=== PATIENT | male | born 1990 | race Caucasian/White ===

== ENCOUNTER 2018-10-19 23:04 | Emergency (ER) | payer BC ==
[~2018-10-19] VITALS: Wt 71.5 kg
[2018-10-19 23:06] VITALS: Wt 71.5 kg
[2018-10-19 23:07] VITALS: BP 126/65; PULSE 82; RESP 19
--- NOTE | 2018-10-20 01:16 | ERD ---
ER Documentation Chief Complaint Chief Complaint bib self, cc: canker sores HPI This patient is a 28-year-old male brought in by his girlfriend with concerns for mouth sores for the past 1 week. Patient has had history of similar symptoms many times in the past. He has tried Orajel at home with some relief. He denies any fevers or chills. He denies any history of sexually transmitted infections. The girlfriend states they typically kiss but she never has the same symptoms. Symptoms are exacerbated by eating spicy foods. Symptoms moderate in severity. No other symptoms reported at this time. No fevers or chills reported. ROS All systems reviewed and are negative except as per history of present illness. PMhx/Soc Medical and Surgical Hx: pt denies Medical Hx, pt denies Surgical Hx Hx Alcohol Use: Yes (social) Hx Substance Use: No Hx Tobacco Use: No Smoking Status: Never smoker FmHx Family History: No diabetes Physical Exam Vitals Vital Signs Date Temp Pulse Resp B/P (MAP) Pulse Ox O2 O2 Flow FiO2 Time Delivery Rate 10/19/18 98.3 82 19 126/65 100 23:07 (85) 10/19/18 98.4 75 16 128/74 99 23:06 (92) Physical Exam Const: No acute distress Head: Atraumatic Eyes: Normal Conjunctiva ENT: Normal External Ears, Nose and Mouth. Multiple shallow aphthous ulcerations in the mouth. Neck: Full range of motion. No meningismus. Resp: Clear to auscultation bilaterally Cardio: Regular rate and rhythm, no murmurs Skin: No petechiae or rashes Ext: No cyanosis, or edema Neur: Awake and alert Psych: Normal Mood and Affect Procedures/MDM Patient is a 28-year-old male presenting to the emergency department with signs and symptoms consistent with multiple aphthous ulcers in the mouth. No evidence to suggest peritonsillar abscess, retropharyngeal abscess, herpes gingivostomatitis, sepsis, or other emergencies. Patient was stable and appropriate for discharge and further treatment as an outpatient. He will be provided prescription for Magic mouthwash. The patient was advised to follow-up with his primary care physician and return immediately for any new or worsening or concerning symptoms. Patient agreed with diagnosis, plan, need for follow- up, return precautions. Departure Diagnosis: Primary Impression: Mouth sores Condition: Fair Patient Instructions: Aphthous Ulcer Referrals: [facility] YOU HAVE RECEIVED A MEDICAL SCREENING EXAM AND THE RESULTS INDICATE THAT YOU DO NOT HAVE A CONDITION THAT REQUIRES URGENT TREATMENT IN THE EMERGENCY DEPARTMENT. FURTHER EVALUATION AND TREATMENT OF YOUR CONDITION CAN WAIT UNTIL YOU ARE SEEN IN YOUR DOCTORS OFFICE WITHIN THE NEXT 1-2 DAYS. IT IS YOUR RESPONSIBILITY TO MAKE AN APPOINTMENT FOR FOLOW-UP CARE. IF YOU HAVE A PRIMARY DOCTOR --you should call your primary doctor and schedule an appointment IF YOU DO NOT HAVE A PRIMARY DOCTOR YOU CAN CALL OUR PHYSICIAN REFERRAL HOTLINE AT IF YOU CAN NOT AFFORD TO SEE A PHYSICIAN YOU CAN CHOSE FROM THE FOLLOWING [facility] [address] [facility]. [facility] [address] [facility] [facility] [address] [facility] [facility] [address] [facility]. [facility] [address] [facility]. [facility]. [address] Additional Instructions: Call your primary care doctor TOMORROW for an appointment during the next 1-2 days.See the doctor sooner or return here if your condition worsens before your appointment time. BRITTANY LIZAMA PA-C Oct 20, 2018 01:16
== END 2018-10-19 23:47 | disposition home or self-care (01) ==
LOC: FTE 23:04
DX: K12.0 Recurrent oral aphthae (principal)
CPT/HCPCS: 99282